=== PATIENT | male | born 1940 | race Caucasian/White ===

== ENCOUNTER 2016-12-09 14:51 | Emergency (ER) | payer MEDICARE, OTHER ==
[2016-12-09 15:03] VITALS: BP 144/91
--- NOTE | 2016-12-09 16:20 | UC ---
Neck Pain HPI - HPI Summary HPI Summary: complaint of neck pain 1 week ago after working on his lawnmower gradually has worsened since the incident started in right shoulder pain and radiates into neck hx of cervical spine surgery - removed fragments 1974 sitting in recliner with his head back makes it worse sitting upright is more comfortable denies any numbness tinging or numbness in right arm took some tylenol and biofreeze for pain with some relief - History of Current Complaint Chief Complaint: UCBackPain Stated Complaint: NECK PAIN Time Seen by Provider: 12/09/16 16:14 Hx Obtained From: Patient - Allergies/Home Medications Allergies/Adverse Reactions: Allergies Allergy/AdvReac Type Severity Reaction Status Date / Time No Known Allergies Allergy Verified 12/09/16 15:04 PMH/Surg Hx/FS Hx/Imm Hx Previously Healthy: Yes Endocrine History: Dyslipidemia Respiratory History: Asthma - Surgical History Surgical History: Yes Surgery Procedure, Year, and Place: TONSILLECTOMY A CHILD. 2002 ORIF RIGHT ANKLE, [facility] [place]. 2005 LEFT INGUINAL HERNIA REPAIR, [facility] [place]. October 2011 EXPLORATORY LAPAROTOMY WITH PERFORATED BOWEL REPAIR, [facility] [place]. 04/18 HERNIA REPAIR WITH MESH, [facility] [place]. 1974 CERVICAL DISCECTOMY, [place]. 2008 LEFT CATARACT EXTRACTION WITH IOL IMPLANT, [facility] [place] - Family History Known Family History: Positive: Hypertension Negative: Cardiac Disease, Diabetes - Social History Lives: With Family Alcohol Use: Rare Substance Use Type: None Smoking Status (MU): Former Smoker Length of Time of Smoking/Using Tobacco: 7 YRS Have You Smoked in the Last Year: No When Did the Patient Quit Smoking/Using Tobacco: 1964 - Immunization History Most Recent Influenza Vaccination: 2013 Most Recent Tetanus Shot: within last 10 years Most Recent Pneumonia Vaccination: 2012 Review Of Systems Constitutional: Positive: Negative Skin: Positive: Negative Eyes: Positive: Negative ENT: Positive: Negative Respiratory: Positive: Negative Cardiovascular: Positive: Negative Gastrointestinal: Positive: Negative Genitourinary: Positive: Negative Musculoskeletal: Positive: Other: - neck pain Neurological: Positive: Negative Psychological: Positive: Negative All Other Systems Reviewed And Are Negative: Yes Physical Exam Triage Information Reviewed: Yes Appearance: No Pain Distress, Well-Nourished Vital Signs: Initial Vital Signs Temp 97.7 F 12/09/16 14:58 Pulse 71 12/09/16 14:58 Resp 20 12/09/16 14:58 BP 144/91 12/09/16 14:58 Pulse Ox 99 12/09/16 14:58 Vital Signs Reviewed: Yes Eyes: Positive: Conjunctiva Clear ENT: Positive: Pharynx normal, TMs normal Neck: Positive: Supple, Other: - no cspine tenderness tenderness along right trapezius musculature Respiratory: Positive: Lungs clear, Normal breath sounds, No respiratory distress, No accessory muscle use Cardiovascular: Positive: RRR, No Murmur, Pulses Normal Abdomen Description: Positive: Nontender, Soft Bowel Sounds: Positive: Present Musculoskeletal Exam: Normal Neurological: Positive: Alert Psychological: Positive: Normal Response To Family, Age Appropriate Behavior Skin Exam: Normal Neck Pain Course/Dx - Differential Dx/Diagnosis Differential Dx/HQI/PQRI: Sprain, Strain Provider Diagnoses: neck pain Discharge - Discharge Plan Condition: Stable Disposition: HOME Prescriptions: Cyclobenzaprine HCl [Flexeril 5 mg (NF)] 5 mg PO BEDTIME #5 tab Patient Education Materials: Neck Pain (ED) Referrals: Iris Rebolledo NP [Primary Care Provider] - Additional Instructions: Start flexeril as directed. Do not drink alcohol or drive while taking flexeril. Please call physical therapy for further evaluation and treatment. Take acetaminophen for pain. Increase fluids and rest. Please review your discharge instructions. If your symptoms do not improve please call your primary care provider or return to urgent care.
== END 2016-12-09 16:35 | disposition home or self-care (01) ==
LOC: UCEAST 14:51
DX: M54.2 Cervicalgia (principal); Z98.890 Other specified postprocedural states; Z87.39 Personal history of other diseases of the musculoskeletal system and connective tissue
CPT/HCPCS: 99211; G0463

== ENCOUNTER 2017-07-20 10:41 | Day surgery (SDC) | payer MEDICARE, OTHER ==
[~2017-07-20 10:41] MED LIST: Buffered Lidocaine 0.9% SYRIN* 5 ML/SYR SYRINGE INTRADERM ONE; Famotidine IV* 10 MG/ML 2 ML (20 mg) IV ONE; Metoclopramide TAB* 10 MG PO ONE
[2017-07-20] MEDS ORDERED: Propofol* 10 MG/ML 20 ML BTL IV PUSH ONE (10:51)
[2017-07-20] MEDS ORDERED: Dexamethasone IV* 4 MG/ML 1 ML (4 MG) ONE (10:51)
[2017-07-20] MEDS ORDERED: fentaNYL* 50 MCG/ML 2 ML VIAL (100 MCG VIAL) ONE (10:51)
[2017-07-20] MEDS ORDERED: Midazolam* 1 MG/ML 10 ML VIAL (10 MG) ONE (10:51)
[2017-07-20] MEDS ORDERED: Ondansetron INJ* 2 MG/ML VIAL ONE (10:51)
[2017-07-20] MEDS ORDERED: Lidocaine 2% PF * 5 ML VIAL ONE (10:51)
[2017-07-20] MEDS ORDERED: KETAMINE HCL* 50 MG/ML 10 ML VIAL ONE (10:51)
[2017-07-20] MEDS ORDERED: Famotidine IV* 10 MG/ML 2 ML (20 mg) ONE (11:04)
[2017-07-20] MEDS ORDERED: Buffered Lidocaine 0.9% SYRIN* 5 ML/SYR SYRINGE ONE (11:05)
[2017-07-20] MEDS ORDERED: Metoclopramide TAB* 10 MG ONE (11:05)
[2017-07-20] MEDS ORDERED: Lidocaine 1% MPF wEPI 200,000* 30 ML SDV ONE (12:01)
[2017-07-20] MEDS ORDERED: Naloxone* 0.4 MG/ML 1 ML VIAL IV PRN (13:00)
[2017-07-20] MEDS ORDERED: Ondansetron INJ* 2 MG/ML VIAL IV PRN (13:00)
[2017-07-20] MEDS ORDERED: fentaNYL* 50 MCG/ML 2 ML VIAL (100 MCG VIAL) IV PRN (13:00)
[2017-07-20 14:43] VITALS: BP 132/78
== END 2017-07-20 14:57 | disposition home or self-care (01) ==
LOC: OR 10:41
PROVIDERS: ATTEND Plastic Surgery
DX: C44.311 Basal cell carcinoma of skin of nose (principal); G47.33 Obstructive sleep apnea (adult) (pediatric); Z85.828 Personal history of other malignant neoplasm of skin; M19.90 Unspecified osteoarthritis, unspecified site
CPT/HCPCS: 88305; 88331; 88332; A9270-GY; J1100; J2001; J2250; J2405; J2704; J3010

== ENCOUNTER 2017-09-09 09:30 | Inpatient (IN) | payer MEDICARE, OTHER ==
[~2017-09-09 09:30] MED LIST changes: -Famotidine IV* 10 MG/ML 2 ML (20 mg) IV ONE; -Metoclopramide TAB* 10 MG PO ONE
[2017-09-15] MEDS ORDERED: Buffered Lidocaine 0.9% SYRIN* 5 ML/SYR SYRINGE INTRADERM ONE (12:49)
[2017-09-16] MEDS ORDERED: Buffered Lidocaine 0.9% SYRIN* 5 ML/SYR SYRINGE ONE (08:37)
[2017-09-16] MEDS ORDERED: ceFAZolin 2 GM PREMIX (*) 2 GM/50 ML BAG IVPB ONE (08:37)
--- OUTSIDE RECORDS SUMMARY | 2017-09-16 08:42 | XMS REPORT ---
:1940 External Reference #:[id number] Author Organization [facility] Address [address] [address] Phone [phone] Care Team Providers Name Role Phone Josiah De La Torre MD Care Team Information Shell Maker Lockstitch Unavailable Berny Vargas MD Primary Care Physician Unavailable Payers Type Date Identification Numbers Payment Provider Subscriber Medicare Primary Policy Number: [id number] Medicare Alayna Hassan PayID: [id number] [address] [place] [address] Medigap Part B Policy Number: [id number] [employer] Insurance Alayna Hassan Group Number: [id number] [address] PayID: [id number] [place] [address] Problems Date Description Provider Status Onset: 03/23/2014 Obstructive sleep apnea syndrome Kendy Hsu MD Active Onset: 06/02/2016 Nasal congestion Kelly Barajas DNP, RN, Active SENIOR PASTOR-BC Onset: 12/11/2016 Mixed hyperlipidemia Sophy Rincon M.D.,FACKeyshawn Onset: 08/11/2017 Basal cell carcinoma of face Sophy Rincon M.D.,FACKeyshawn Note: removed Onset: 08/31/2017 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 Onset: 08/31/2017 Lumbosacral spondylosis without Cordelia Garrido MD Active myelopathy Onset: 08/31/2017 Sciatica Cordelia Garrido MD Active Family History Date Family Member(s) Problem(s) Comments General cancer Father Killed in accident when pt was 2 Mother Lived until her 90's Siblings 1 Social History Type Date Description Comments Marital Status Lives With Occupation retired Tech at [employer] Cigarette Use Has not smoked since 24 years old ETOH Use 12/13/2016 Occasionally consumes alcohol Smoking Patient is a former smoker Recreational Drug Use Denies Drug Use Exercise Type/Frequency Exercises regularly General Hx Text Allergies, Adverse Reactions, Alerts Date Description Reaction Status Severity Comments 03/23/2014 NKDA active Medications Medication Date Status Form Strength Qnty SIG Indications Ordering Provider Gabapentin 08/11/ Active Capsules 100mg 180cap 1 po qid Berny 2018 s for 4d, Andrei Vargas, then 2 po M.D.,FACP qid for 4d, then 3 qid for 4d,then 4 qid ongoing Montelukast 04/18/ Active Tablets 10mg 1 by Unknown Sodium 2014 mouth every day Eye Lubricant 04/18/ Active as needed Unknown 2014 Atorvastatin / Active Tablets 20mg 90tabs take 1 Unknown Calcium 0000 tablet daily Vitamin D / Active Capsules 400Unit 1 by Unknown (Cholecalciferol) 0000 mouth every day Vitamin E / Active Capsules 200Unit 1 by Unknown 0000 mouth every day Acetaminophen-Cod 12/11/ Hx Tablets 300-30mg 30tabs 1-2 tab Berny mclaughlin #3 2017 - by mouth Andrei Vargas, 05/24/ 3x a day M.D.,FACP 2017 as needed Metaxalone 12/11/ Hx Tablets 400mg 30tabs 1 by Berny 2017 - mouth Andrei Vargas, 08/11/ 3x/day if M.D.,FACP 2017 needed Cyclobenzaprine 12/09/ Hx Tablets 5mg 5tabs take one Other HCL 2017 - tablet by Ordering 12/11/ mouth Provider 2017 nightly Eye Drops 04/18/ Hx as needed Unknown 2014 - 2017 Aspirin Ec / Hx Tablets DR 81mg 90tabs 1 by Unknown 0000 - mouth 07/23/ every day 2016 Advil / Hx Capsules 200mg as needed Unknown 0000 - 2017 Immunizations CPT Code Status Date Vaccine Lot # [id number] Given 05/24/2017 Pneumococcal Conjugate Vaccine 13 Valent For [id number] Intramuscular Use [id number] Given 03/02/2017 Influenza Virus Vaccine, Quadrivalent, Split, Preservative Free Vital Signs Date Vital Result Comment 08/31/2017 Height 66 inches 5'6" Weight 197.00 lb BP Systolic Sitting 122 mmHg BP Diastolic Sitting 80 mmHg Pain Level 2 BMI (Body Mass Index) 31.8 kg/m2 08/11/2017 Weight 195.00 lb Heart Rate 78 /min BP Systolic Sitting 124 mmHg BP Diastolic Sitting 82 mmHg Body Temperature 96.8 F O2 % BldC Oximetry 98 % 05/24/2017 Weight 196.12 lb Heart Rate 81 /min BP Systolic Sitting 128 mmHg BP Diastolic Sitting 82 mmHg Body Temperature 97.7 F O2 % BldC Oximetry 91 % 12/11/2016 Weight 201.50 lb Heart Rate 73 /min BP Systolic Sitting 130 mmHg BP Diastolic Sitting 84 mmHg Body Temperature 97.7 F O2 % BldC Oximetry 96 % 06/02/2016 Height 65 inches 5'5" Weight 200.00 lb Heart Rate 95 /min BP Systolic 108 mmHg BP Diastolic 76 mmHg Respiratory Rate 14 /min O2 % BldC Oximetry 92 % BMI (Body Mass Index) 33.3 kg/m2 07/24/2015 Height 65 inches 5'5" Weight 200.00 lb Heart Rate 89 /min BP Systolic 126 mmHg BP Diastolic 79 mmHg BMI (Body Mass Index) 33.3 kg/m2 04/19/2015 Height 65 inches 5'5" Weight 202.12 lb Heart Rate 88 /min BP Systolic Sitting 126 mmHg BP Diastolic Sitting 68 mmHg Respiratory Rate 18 /min O2 % BldC Oximetry 97 % BMI (Body Mass Index) 33.6 kg/m2 Neck Circumference in inches 17.5 03/23/2014 Height 65 inches 5'5" Weight 198.00 lb Heart Rate 94 /min BP Systolic Sitting 120 mmHg BP Diastolic Sitting 72 mmHg Respiratory Rate 20 /min O2 % BldC Oximetry 94 % BMI (Body Mass Index) 32.9 kg/m2 Results Test Date Test Result H/L Range Note Laboratory test 2017 Surgical Pathology SEE RESULT BELOW 1 finding Comp Metabolic Panel 05/24/2017 Sodium 141 mmol/L 133-145 Potassium 4.3 mmol/L 3.5-5.0 Chloride 107 mmol/L 101-111 Co2 Carbon Dioxide 28 mmol/L 22-32 Anion Gap 6 mmol/L 2-11 Glucose 96 mg/dL 70-100 Blood Urea Nitrogen 15 mg/dL 6-24 Creatinine 1.20 mg/dL High 0.67-1.17 BUN/Creatinine Ratio 12.5 8-20 Calcium 8.9 mg/dL 8.6-10.3 Total Protein 6.5 g/dL 6.4-8.9 Albumin 4.0 g/dL 3.2-5.2 Globulin 2.5 g/dL 2-4 Albumin/Globulin Ratio 1.6 1-3 Total Bilirubin 1.20 mg/dL High 0.2-1.0 Alkaline Phosphatase 60 U/L 34-104 Alt 15 U/L 7-52 Ast 16 U/L 13-39 Egfr Non- 58.7 >60 Egfr 75.5 >60 2 Lipid Profile (Trig/Chol/HDL) 05/24/2017 Triglycerides 72 mg/dL 3 Cholesterol 137 mg/dL 4 HDL Cholesterol 45.2 mg/dL 5 LDL Cholesterol 77 mg/dL 6 Laboratory test finding 05/24/2017 PSA Screening 0.254 ng/mL 0-4.000 7 Arthritis Panel 07/24/2015 Uric Acid 6.3 mg/dL 4.4-7.6 Erythrocyte Sed Rate 0 mm/Hr 0-40 Yoly (Anti-Nuclear AB) Screen Negative Negative Rheumatoid Factor <15 IU/mL <15 8 1 SEE RESULT BELOW Name: ALAYNA HASSAN : [address]: Alen Torres MD Acct: [id number] Unit: [id number] AGE: 77 Location: OR Re07/20/17 SEX: M Status: AKOSUA REDDY SPEC: [id number] TIFFANIE: 07/20/17- SUBM DR: Alen Torres MD REQ: [id number] RECD: 07/20/17-1257 STATUS: DARRIUS TANG DR: Berny Wilder MD _ ORDERED: FS 1ST PER SPEC, FS ADD PER SPEC, LEVEL 4 THIS IS A CORRECTED REPORT 08/04/17-1620 Corrected Report FINAL DIAGNOSIS Skin, right nasal ala, excision: -- Basal cell carcinoma, superficial and nodular type. See comment. -- Deep, tip, lateral margins of resection are clear. Comment: The nodular component is seen only in frozen section slides. Focal superficial basal cell carcinoma is seen on permanents. This corrected report is generated to fix the specimen line in diagnosis. The remainder of the diagnosis remains unchanged. PATHOLOGY SURGICAL CONSULT Frozen section (FS)/Touch Prep (TP)/Gross Consult (GC) FS) Skin, right nasal ala, excision: a. Basal cell carcinoma, superficial and nodular. (EP) b. All margins clear. (EP) Findings discussed with Dr Torres on 07/20/17 at 1313. PRE-OPERATIVE DIAGNOSIS Basal cell carcinoma right nasal ala; suture buitrago 12 o?clock superior margin CONTINUED ON NEXT PAGE DEPARTMENT OF PATHOLOGY, [address] [place] [address] Naman Jones M.D. Director [facility] # [id number] RUN DATE: 08/04/17 [facility] LAB LIVE PAGE 2 Patient: ALAYNA HASSAN [id number] (Continued) GROSS DESCRIPTION (Continued) GROSS DESCRIPTION The specimen is received fresh labeled, Excision Basal Cell Carcinoma Right Nasal Ala, Suture Buitrago 12:00 Superior Margin, and consists of a 1.1 x 1.0 cm peres-pink ovoid portion of skin excised to a depth of 0.3 cm. There is a suture attached to one long axis which designates the 12:00 superior margin. The specimen is inked as follows: 9: 00 half black, 3:00 half blue and 12:00 end green, serially sectioned from 12:00 to 6:00 and entirely submitted for frozen section microscopy. The frozen section residue is submitted in cassettes FSA and FSB to include ends in cassette FSA. Signed (signature on file) Naman Jones MD [id number] END OF REPORT DEPARTMENT OF PATHOLOGY, [address] [place] [address] Naman Jones M.D. Director [facility] # [id number] 2 Because ethnic data is not always readily available, this report includes an eGFR for both -Americans and non- Americans. The National Kidney Disease Education Program (NKDEP) does not endorse the use of the MDRD equation for patients that are not between the ages of 18 and 70, are , have extremes of body size, muscle mass, or nutritional status, or are non- or non-. According to the National Kidney Foundation, irrespective of diagnosis, the stage of the disease is based on the level of kidney function: Stage Description GFR(mL/min/1.73 m(2)) 1 Kidney damage with normal or decreased GFR 90 2 Kidney damage with mild decrease in GFR 60-89 3 Moderate decrease in GFR 30-59 4 Severe decrease in GFR 15-29 5 Kidney failure <15 (or dialysis) 3 Desirable: <150 Borderline High: 150-199 High: 200-499 Very High: >500 4 Desirable: <200 Borderline High: 200-239 High: >239 5 Low: <40 Desirable: 40-60 High: >60 6 Desirable: <100 Near Optimal: 100-129 Borderline High: 130-159 High: 160-189 Very High: >189 7 Serum levels of PSA measured using the [employer] DXI Hybritech immunoassay should not be interpreted as absolute evidence of the presence or absence of disease. The PSA value should be used in conjunction with other pertinent clinical diagnostic procedures. A PSA value in the range of 0.1 to 0.6 ng/ml is indeterminate if being used as an indicator of recurrent or residual disease. The values obtained with different assay methods or kits cannot be used interchangeably. 8 Test Performed by: [place] [id number] Telegrapher Agent: Alayna Kaiser II, M.D., Ph.D. Procedures Date CPT Code Description Status 06/18/2014 Colonoscopy Completed 04/04/2012 51630 EKG, Interpretation Only Completed 01/24/2010 Colonoscopy Completed Encounters Type Date Location Provider CPT E/M Dx Office Visit 08/11/2017 1:40p [facility] Internal Berny Vargas, 62580 M54.42 Medicine - [place] Schrader,FACP Office Visit 05/24/2017 8:50a [facility] [place] [address] E78.5 Medicine - [place] Gust[place] Z23 J30.9 Office Visit 12/11/2016 10:40a [facility] Internal Medicine Berny Vargas, 60656 M54.2 - [place] Schrader,FACP Office Visit 06/02/2016 8:15a Pul[facility]ology [facility] Sleep Kelly Barajas, [address] [facility] JUSTINO JAVED, [facility] R09.81 Office Visit 07/24/2015 1:30p [facility], 44464 M66.242 C.MKendallAKendall Schrader Office Visit 04/19/2015 9:30a Pul[facility]ology [facility] Sleep Kelly Barajas, [address] [facility] JUSTINO JAVED, [facility] Office Visit 06/21/2014 10:10a [facility] Rene Felix, [address] 578.9 Assoc, Hospitalists M.DKendall 327.23 272.4 278.00 Office Visit 06/20/2014 10:09a [facility], Rene Felix [address]303 578.9 Hospitalists MKendallDKendall 327.23 278.00 272.4 Office Visit 06/18/2014 10:08a [facility], Rachel Fried, N.P. 21438 578.9 Hospitalists 327.23 278.00 Office Visit 03/23/2014 11:45a [facility] [address] [facility] Plan of Care Future Appointment(s):11/22/2017 9:50 am - Iris Rebolledo NP at [facility] Internal Medicine - [place] [address]08/31/2017 - Cordelia Garrido, MDM54.42 Lumbago with sciatica, left sideM47.26 Other spondylosis with radiculopathy, lumbar regionFollow up:RV one week post opM51.26 Other intervertebral disc displacement , lumbar region
[2017-09-16] MEDS ORDERED: Lidocaine 1% MPF wEPI 200,000* 30 ML SDV ONE ×2 (11:25→11:32)
[2017-09-16] MEDS ORDERED: Thrombin 5,000 UNITS* 1 APPLIC KIT - topical use - TOPICAL ONE ×2 (11:26→11:33)
[2017-09-16] MEDS ORDERED: Bacitracin OINTMENT* 0.5% 0.5 oz TUBE ONE (11:26)
[2017-09-16] MEDS ORDERED: Bacitracin IV* 50,000 UNITS INJ ONE (11:33)
[2017-09-16] MEDS ORDERED: Propofol* 10 MG/ML 20 ML BTL IV PUSH ONE (11:44)
[2017-09-16] MEDS ORDERED: Dexamethasone IV* 4 MG/ML 1 ML (4 MG) ONE (11:44)
[2017-09-16] MEDS ORDERED: Atracurium* 10 MG/ML 10 ML VIAL ONE (11:44)
[2017-09-16] MEDS ORDERED: fentaNYL* 50 MCG/ML 2 ML VIAL (100 MCG VIAL) ONE ×2 (11:44→14:51)
[2017-09-16] MEDS ORDERED: Midazolam* 1 MG/ML 5 ML VIAL (5 MG) ONE (11:45)
[2017-09-16] MEDS ORDERED: Gelfoam Sponge SIZE 100* SPONGE ONE (12:28)
[2017-09-16] MEDS ORDERED: Ondansetron INJ* 2 MG/ML VIAL IV PRN ×2 (14:02→14:13)
[2017-09-16] MEDS ORDERED: DiMENhydriNATE IV* 50 MG/ML VIAL IV PUSH PRN (14:02)
[2017-09-16] MEDS ORDERED: HYDROcodone/ACETAMIN 5-325 MG* 1 TAB PO PRN (14:02)
[2017-09-16] MEDS ORDERED: Naloxone* 0.4 MG/ML 1 ML VIAL IV PRN (14:02)
[2017-09-16] MEDS ORDERED: oxyCODONE TAB* 5 MG TAB PO PRN (14:02)
[2017-09-16] MEDS ORDERED: Ondansetron INJ* 2 MG/ML VIAL ONE (14:08)
[2017-09-16] MEDS ORDERED: Glycopyrrolate IV* 0.2 MG/ML 1 ML VIAL ONE (14:12)
[2017-09-16] MEDS ORDERED: Neostigmine Methylsulfate* 1 MG/ML 10 ML VIAL (1 mg/ml) ONE (14:12)
[2017-09-16] MEDS ORDERED: Acetaminophen TAB* 325 MG PO PRN (14:13)
[2017-09-16] MEDS ORDERED: Magnesium Hydroxide LIQ* 30 ML UDC PO PRN (14:13)
[2017-09-16] MEDS: fentaNYL* 50 MCG/ML 2 ML VIAL (100 MCG VIAL) IV PRN ×4 (14:52→15:08)
[2017-09-16] MEDS ORDERED: HYDROmorphone INJ* 2 MG/ML CARPUJECT SYRINGE ONE (15:07)
[2017-09-16] MEDS: HYDROmorphone INJ* 1 MG/ML CARPUJECT SYRINGE IV PRN ×2 (15:12→15:31)
[2017-09-16] MEDS ORDERED: oxyCODONE TAB* 5 MG TAB ONE (15:16)
--- NOTE | 2017-09-16 15:23 | RAD ---
INDICATION: Decompressive lumbar laminectomy COMPARISONS: MRI dated August 17, 2017 TECHNIQUE: Fluoroscopy was provided for a surgical procedure. Total fluoroscopy time is: 14.1 seconds FINDINGS: Spot images demonstrate metallic probes at L5-S1, counting from L5 as the last lumbar type vertebral body. IMPRESSION: FLUOROSCOPY WAS PROVIDED FOR A SURGICAL PROCEDURE CPT II Codes: G9500
[2017-09-16] MEDS ORDERED: Atorvastatin* 20 MG TAB PO SCH (18:00)
--- NOTE | 2017-09-16 22:08 | OP ---
DATE OF OPERATION: 09/16/17 - ROOM #342 DATE OF : 38 SURGEON: Cordelia Garrido MD PRESS BREAKER: ARON Don. The case was done with the assistance of a surgical PA because of the complexity of the case. ANESTHESIA: General. PRE-OP DIAGNOSES: Degenerative disk disease, lumbar stenosis, spondylosis, and herniated nucleus pulposus. POST-OP DIAGNOSES: Degenerative disk disease, lumbar stenosis, spondylosis, and herniated nucleus pulposus. OPERATIVE PROCEDURE: The patient underwent minimally invasive L5 decompressive laminectomy and left L5-S1 diskectomy with extensive foraminotomy left S1. ESTIMATED BLOOD LOSS: 30 cc. COMPLICATIONS: None. SUMMARY: The patient is a very pleasant 77-year-old gentleman with complaints of mild back pain and severe left lower extremity pain. MRI findings were consistent with multilevel degenerative disk disease and large left L5-S1 herniated nucleus pulposus with stenosis at that same level. After failing conservative treatment modalities, the patient was offered the option of surgical intervention in the form of an L5-S1 decompressive laminectomy and right L5-S1 diskectomy and foraminotomies. We discussed with the patient the option of extending the decompression to L4-5 if needed. We agreed with the patient to concentrate on the L5-S1 level since his modality was predominantly on the left lower extremity and had minimal or no symptoms in the right lower extremity. After explaining expectations, limitations, possible complications of the procedure to the patient and his daughter with complications included but not limited to bleeding, infection, risk of injury to adjacent structures, coma, paralysis, , need for additional procedures, anesthesia risk, stroke , blindness, cancer, instability, spinal fluid leak, the patient and his daughter were agreeable to proceeding with surgery and informed consent was obtained. The patient understood that his condition may not improve, and, in fact, may get worse after surgery, and that he may need to have additional procedure in the future. He also understood that the operative plan may be modified according to intraoperative findings and conditions. DESCRIPTION OF PROCEDURE: The patient was brought to the operating room and was placed under general anesthesia by the anesthesia team. He was carefully positioned prone on the Francisco frame on the Jerel table and all bony prominences were meticulously padded. His skin was prepped and draped in the standard fashion and after appropriate surgical pause and patient identification , the operative level was identified with intraoperative fluoroscopic imaging. A small left paramedian incision was marked on the skin and after the skin was infiltrated with local anesthetic, a #10 surgical blade was used to incise the skin. The incision was carried down to the dorsal fascia, and over a series of dilators, the [employer] tubular retractor was introduced into the field over the L5- S1 disk space. Intraoperative microscope was brought into the field and a small amount of paraspinal musculature was elevated with the use of Bovie cautery and the base of the spinous process and the lamina of L5 as well as the L5-S1 facet were identified. A high-speed drill as well as Kerrison punches were used to fashion a complete decompressive laminectomy of L5, decompressing the L5-S1 disk level as well as the L4-5. Of note, significant stenosis was encountered with thickened ligamentum flavum as expected from the preoperative imaging. After performing a small medial facetectomy, the left S1 nerve root was identified and extensive foraminotomy was performed. The thecal sac was then retracted gently medially with nerve root retractor and a large disk fragment protruding under the posterior ligament was identified as expected on preoperative MRI. The posterior ligament was incised with a #15 surgical blade as well as the annulus fibrosus and fragmentectomy and diskectomy was performed with the use of pituitary rongeurs and curettes. Intraoperative fluoroscopic imaging confirmed appropriate surgical level and after copious irrigation and confirmation of meticulous hemostasis, the thecal sac as well as the nerve root was found to be free of any pressure phenomenon. The tubular retractor was then gently removed and after confirming meticulous hemostasis and copious irrigation as well as meticulous inspection of the wound, the wound was closed by layers with 0 interrupted Vicryl suture to approximate the dorsal fascia while the subcutaneous tissue was approximated with 2-0 interrupted Vicryl sutures. The skin was then covered with Dermabond. At the end of the procedure , all counts were reported to be correct. The patient remained hemodynamically stable throughout the case. At the end of the procedure, the patient was turned supine, was extubated and was transferred to Recovery in excellent condition. The case was done with the assistance of ARON because of the complexity of the case. [id number]/[facility] #: [id number] YESSENIA
[2017-09-17 08:09] VITALS: BP 116/69
[2017-09-17] MEDS: HYDROcodone/ACETAMIN 5-325 MG* 1 TAB PO PRN ×2 (08:14→10:48)
--- NOTE | 2017-09-17 10:24 | PN ---
Progress Note - Progress Note Date of Service: 09/17/17 SOAP: Subjective: [] No events ON. Ambulates. Tolerates PO well. LLE preop pain resolved. Mild soreness in buttocks area after prolonged sitting on bed this am. Voids. Perineal sensation intact. Wants to go home. Objective: []VSS Afebrile Wound s,c,d AAOx3 ALFRED, CN II-XII grossly intact. Motor 5/5 all extremities Sensory grossly intact to light touch. Assessment: [] 77 yom POD#1 MIS L5 decompressive laminectomy, Lt L5-S1 discectomy Plan: []Monitor VS, Neurochecks Encourage ambulation. DC home when cleared by PT. Full instructions were given. Gwen Garrido MD
--- NOTE | 2017-09-19 02:45 | DS ---
DISCHARGE SUMMARY: DATE OF ADMISSION: 09/16/17 DATE OF DISCHARGE: 09/17/17 PROCEDURE: Patient underwent minimally invasive L5 decompressive laminectomy with left L5-S1 diskectomy and extended foraminotomy. SUMMARY: The patient is a very pleasant 77-year-old gentleman with complaints of back pain and left lower extremity pain. MRI findings were consistent with multilevel degenerative disk disease and left L5-S1 herniated nucleus pulposus with canal stenosis at the same level. After failing conservative treatment, the patient was offered option of surgical intervention. After explaining the risks and benefits of the procedure, the patient was agreeable to proceed with the surgery. Informed consent was obtained. Patient underwent the above procedure. He tolerated the procedure well, was able to extubate and was transferred to the recovery room in excellent condition. He was transferred to surgical floor and he continued to improve. On postoperative day 1, preoperative left lower extremity pain completely resolved. He was able to ambulate and tolerating p.o. well and had good pain control with p.o. medication. He was able to void and was neurovascularly intact. The patient was felt to be ready to be discharged home. DISPOSITION: Home. The patient was discharged home with pain medication and full instructions. [id number]/[facility] #: [id number] [facility]ENTERConcepcion
== END 2017-09-17 12:10 | disposition home or self-care (01) | DRG 520 ==
LOC: AA 09-16 08:36 → SSU 09-16 16:53
PROVIDERS: ADMIT Neurological Surgery; ATTEND Neurological Surgery
PROC: 01NB0ZZ Release Lumbar Nerve, Open Approach (ICD-10-PCS; 2017-09-16)
PROC: 0SB40ZZ Excision of Lumbosacral Disc, Open Approach (ICD-10-PCS; 2017-09-16)
PROC: 01NR0ZZ Release Sacral Nerve, Open Approach (ICD-10-PCS; 2017-09-16)
PROC: 0SB20ZZ Excision of Lumbar Vertebral Disc, Open Approach (ICD-10-PCS; principal; 2017-09-16 10:00)
DX: M51.17 Intervertebral disc disorders with radiculopathy, lumbosacral region (principal); M48.07 Spinal stenosis, lumbosacral region; E78.00 Pure hypercholesterolemia, unspecified; M48.061 Spinal stenosis, lumbar region without neurogenic claudication; M43.16 Spondylolisthesis, lumbar region; M51.16 Intervertebral disc disorders with radiculopathy, lumbar region; M47.816 Spondylosis without myelopathy or radiculopathy, lumbar region; M47.817 Spondylosis without myelopathy or radiculopathy, lumbosacral region; E78.2 Mixed hyperlipidemia; G47.33 Obstructive sleep apnea (adult) (pediatric); J38.01 Paralysis of vocal cords and larynx, unilateral; Z98.42 Cataract extraction status, left eye; Z98.41 Cataract extraction status, right eye; Z80.9 Family history of malignant neoplasm, unspecified; Z87.891 Personal history of nicotine dependence; Z72.89 Other problems related to lifestyle; Z85.828 Personal history of other malignant neoplasm of skin
CPT/HCPCS: 76001; A9270-GY; G8978-GP-CH; G8979-GP-CH; G8980-GP-CH; J0690; J1100; J1170; J2001; J2250; J2405; J2704; J2710; J3010

== ENCOUNTER 2018-01-14 19:34 | Emergency (ER) | payer MEDICARE, OTHER ==
--- OUTSIDE RECORDS SUMMARY | 2018-01-14 19:39 | XMS REPORT ---
:1940 External Reference #:[id number] Author Organization [facility] Address [address] [place] [address] [place] [address] Phone [phone] Care Team Providers Name Role Phone Berny Vargas MD Primary Care Physician Unavailable Payers Type Date Identification Numbers Payment Provider Subscriber Medicare Primary Policy Number: [id number] Medicare Alayna Hassan PayID: [id number] [address] [place] [address] Medigap Part B Policy Number: [id number] [employer] Insurance Alayna Hassan Group Number: [id number] [address] PayID: [id number] [place] [address] Problems Date Description Provider Status Onset: 03/23/2014 Obstructive sleep apnea syndrome Kendy Hsu MD Active Onset: 06/02/2016 Nasal congestion Kelly Barajas DNP, RN, Active [employer]ATION [employer]ER[employer] Onset: 12/11/2016 Mixed hyperlipidemia Sophy Rincon M.D.FACKeyshawn Onset: 08/11/2017 Basal cell carcinoma of face Sophy Rincon M.D.FACKeyshawn Note: removed Onset: 08/31/2017 Sciatica Cordelia Garrido MD Active Onset: 08/31/2017 Lumbosacral spondylosis without Cordelia Garrido MD Active myelopathy Onset: 08/31/2017 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 Onset: 11/24/2017 Ex-smoker Berny Vargas M.D.,FACP Active Note: quit age 24 Onset: 09/22/2017 Convalescence after surgery Cordelia Garrido MD Inactive Inactive: 11/24/2017 Family History Date Family Member(s) Problem(s) Comments General cancer Father Killed in accident when pt was 2 Mother Lived until her 90's Mother Chronic Obstructive Pulmonary Disease (COPD) Mother Diverticulitis Siblings 1 Social History Type Date Description Comments Marital Status Lives With Occupation retired [employer] at [place] Cigarette Use Has not smoked since 24 years old ETOH Use 12/13/2016 Occasionally consumes none in past month alcohol 09/06/17 Smoking Patient is a former smoker Recreational Drug Use Denies Drug Use Exercise Type/Frequency Exercises regularly none last couple months General Hx Text Allergies, Adverse Reactions, Alerts Date Description Reaction Status Severity Comments 03/23/2014 NKDA active Medications Medication Date Status Form Strength Qnty SIG Indications Ordering Provider Mometasone 11/24 Active Suspension 50mcg/Act 17gm 1 spray Berny Lopez nasl lars Beltran M.D.,FACP every day Montelukast 10/07 Active Tablets 10mg 90tab 1 [address] [employer] [place] Sodium s mouth Pachikara, every day M.D. Ibuprofen 200 09/18 Active Tablets 200mg 24tab 400 mg po ios s q 6 h prn Hema osuna. MD Hold if GI symptoms develop Eye Lubricant 04/18 Active as needed Atorvastatin Active Tablets 20mg 90tab take 1 Enrique Calcium / s tablet Pachikara, daily M.D. Hydrocodone-Aceta 09/22 Hx Tablets 5-325mg 30tab 1 tab by Cordelia minophen s mouth Dimopoulos - every 6-8 MD 11/24 h needed pain Cyclobenzaprine 09/18 Hx Tablets 10mg 30tab 1 tab by Cordelia HCL s mouth Dimopoisrael - MD oilvia 09/22 times a day as needed for pain Gabapentin 08/11 Hx Capsules 100mg 180ca 2 tabs Iris ps twice a [place], - day SCENE PAINTER 09/22 Acetaminophen-Cod 12/11 Hx Tablets 300-30mg 30tab 1-2 tab Berny mclaughlin # s by mouth Andrei Vargas, - 3x a day M.D.,FACP 05/24 as needed /2016 Metaxalone 12/11 Hx Tablets 400mg 30tab 1 by Berny /2016 s mouth Andrei Vargas, - 3x/day if M.D.,FACP 08/11 needed Cyclobenzaprine 12/09 Hx Tablets 5mg 5tabs take one Other tablet by Ordering - mouth Provider 12/11 nightly /2016 Montelukast 04/18 Hx Tablets 10mg 90tab 1 by Iris Uriarte /2014 s mouth Rebolledo, - every day SCENE PAINTER 10/07 Eye Drops 04/18 Hx as needed - 08/11 Aspirin Ec [address] 81mg 90tab 1 by Unknown /0000 s mouth - every day 07/23 Vitamin D 00/00 Hx Capsules 400Unit 1 by Unknown (Cholecalciferol) /0000 mouth - every day 09/06 Vitamin E 00 Hx Capsules 200Unit 1 by Unknown /0000 mouth - every day 09/06 Advil 0000 Hx Capsules 200mg as needed Unknown /0000 - 08/11 Hydrocodone-Aceta 00 Hx Tablets 5-325mg Take 1 To Unknown minophen /0000 2 Tablets - By Mouth 11/24 Every Hours as Needed For Marked Pain Immunizations CPT Code Status Date Vaccine Lot # [id number] Given 05/24/2017 Pneumococcal Conjugate Vaccine 13 Valent For [id number] Intramuscular Use 05009 Given 03/02/2017 Influenza Virus Vaccine, Quadrivalent, Split, Preservative Free Vital Signs Date Vital Result Comment 12/21/2017 Height 66 inches 5'6" Weight 196.00 lb BP Systolic Sitting 112 mmHg BP Diastolic Sitting 80 mmHg Pain Level 4 BMI (Body Mass Index) 31.6 kg/m2 11/24/2017 Height 66 inches 5'6" Weight 196.00 lb Heart Rate 76 /min BP Systolic Sitting 128 mmHg BP Diastolic Sitting 80 mmHg Body Temperature 98.2 F O2 % BldC Oximetry 90 % BMI (Body Mass Index) 31.6 kg/m2 10/19/2017 Height 66 inches 5'6" Weight 198.00 lb BP Systolic Sitting 138 mmHg BP Diastolic Sitting 80 mmHg Pain Level 1 BMI (Body Mass Index) 32.0 kg/m2 09/22/2017 Height 66 inches 5'6" Weight 198.00 lb BP Systolic Sitting 140 mmHg BP Diastolic Sitting 80 mmHg Body Temperature 97.6 F Pain Level 2 BMI (Body Mass Index) 32.0 kg/m2 09/06/2017 Height 66 inches 5'6" Weight 198.00 lb Heart Rate 94 /min BP Systolic 118 mmHg BP Diastolic 70 mmHg Body Temperature 97.6 F O2 % BldC Oximetry 93 % BMI (Body Mass Index) 32.0 kg/m2 08/31/2017 Height 66 inches 5'6" Weight 197.00 [...] Test Date Test Result H/L Range Note Urinalysis Profile 09/03/2017 Urine Color Yellow Urine Appearance Clear Urine Specific Mason 1.019 1.010-1.030 Urine pH 5.0 5-9 Urine Urobilinogen Negative Negative Urine Ketones Negative Negative Urine Protein Negative Negative Urine Leukocytes Negative Negative Urine Blood Negative Negative Urine Nitrite Negative Negative Urine Bilirubin Negative Negative Urine Glucose Negative Negative Basic Metabolic Panel 09/03/2017 Sodium 141 mmol/L 139-145 Potassium 4.2 mmol/L 3.5-5.0 Chloride 107 mmol/L 101-111 Co2 Carbon Dioxide 27 mmol/L 22-32 Anion Gap 7 mmol/L 2-11 Glucose 66 mg/dL Low 70-100 Blood Urea Nitrogen 22 mg/dL 6-24 Creatinine 1.25 mg/dL High 0.67-1.17 BUN/Creatinine Ratio 17.6 8-20 Calcium 9.1 mg/dL 8.6-10.3 Egfr Non- 55.9 >60 Egfr 71.8 >60 1 Inr/Protime 09/03/2017 Inr 0.97 0.77-1.02 Laboratory test finding 09/03/2017 Partial Thrombo Time 35.2 seconds 26.0 -36.3 PTT CBC Auto Diff 09/03/2017 White Blood Count 8.2 10^3/uL 3.5-10.8 Red Blood Count 4.90 10^6/uL 4.0-5.4 Hemoglobin 16.0 g/dL 14.0-18.0 Hematocrit 47 % 42-52 Mean Corpuscular Volume 96 fL High 80-94 Mean Corpuscular Hemoglobin 33 pg High 27-31 Mean Corpuscular HGB Conc 34 g/dL 31-36 Red Cell Distribution Width 14 % 10.5-15 Platelet Count 186 10^3/uL 150-450 Mean Platelet Volume 8.3 um3 7.4-10.4 Abs Neutrophils 5.2 10^3/uL 1.5-7.7 Abs Lymphocytes 1.8 10^3/uL 1.0-4.8 Abs Monocytes 0.9 10^3/uL High 0-0.8 Abs Eosinophils 0.3 10^3/uL 0-0.6 Abs Basophils 0 10^3/uL 0-0.2 Abs Nucleated RBC 0 10^3/uL Granulocyte % 63.1 % 38-83 Lymphocyte % 21.4 % Low 25-47 Monocyte % 11.0 % High 0-7 Eosinophil % 4.0 % 0-6 Basophil % 0.5 % 0-2 Nucleated Red Blood Cells % 0 Type & Screen 09/03/2017 Patient Blood Type A Positive Antibody Screen NEGATIVE Laboratory test finding 2017 Surgical Pathology SEE RESULT BELOW 2 Laboratory test finding 05/24/2017 PSA Screening 0.254 ng/mL 0-4.000 3 Lipid Profile 05/24/2017 Triglycerides 72 mg/dL 4 (Trig/Chol/HDL) Cholesterol 137 mg/dL 5 HDL Cholesterol 45.2 mg/dL 6 LDL Cholesterol 77 mg/dL 7 Comp Metabolic Panel 05/24/2017 Sodium 141 mmol/L [...] Egfr Non- 58.7 >60 Egfr 75.5 >60 8 Arthritis Panel 07/24/2015 Uric Acid 6.3 mg/dL 4.4-7.6 Erythrocyte Sed Rate 0 mm/Hr 0-40 Yoly (Anti-Nuclear AB) Screen Negative Negative Rheumatoid Factor <15 IU/mL <15 9 1 Because ethnic data is not always readily [...] 15-29 5 Kidney failure <15 (or dialysis) 2 SEE RESULT BELOW Name: ALAYNA HASSAN : [address]: Alen Torres MD Acct: [id number] Unit: [id number] AGE: 77 Location: OR Re07/20/17 SEX: M [place] [facility] [place]: [id number] TIFFANIE: 07/20/17- [facility] DR: Alen Torres MD REQ: [id number] RECD: 07/20/17-1258 STATUS: DARRIUS TANG DR: Berny Wilder MD _ ORDERED: FS 1ST PER SPEC, FS ADD PER SPEC, LEVEL 4 THIS IS A CORRECTED REPORT 08/04/17-1621 Corrected Report FINAL DIAGNOSIS Skin, right nasal [...] CONTINUED ON NEXT PAGE DEPARTMENT OF PATHOLOGY, [address] [place] [address] Naman Jones M.D. Director [facility] # [id number] RUN DATE: 08/04/17 [facility] LAB LIVE PAGE 2 Patient: ALAYNA HASSAN [id number] (Continued) GROSS DESCRIPTION (Continued) GROSS DESCRIPTION The [...] 1628 END OF REPORT DEPARTMENT OF PATHOLOGY, [address] [place] [address] Naman Jones M.D. Director [facility] # [id number] 3 Serum levels of PSA measured using the Dori Nisswa DXI Hybritech immunoassay should not be interpreted [...] methods or kits cannot be used interchangeably. 4 Desirable: <150 Borderline High: 150-199 High: 200-499 Very High: >500 5 Desirable: <200 Borderline High: 200-239 High: >239 6 Low: <40 Desirable: 40-60 High: >60 7 Desirable: <100 Near Optimal: 100-129 Borderline High: 130-159 High: 160-189 Very High: >189 8 Because ethnic data is not always readily [...] 15-29 5 Kidney failure <15 (or dialysis) 9 Test Performed by: [place] [address] [employer]: Alayna Kaiser II, M.D., Ph.D. Procedures Date CPT Code Description Status 09/16/2017 30758 Use Of Operating Microscope Completed 09/16/2017 25213 Use Of Operating Microscope Completed 09/16/2017 58722 Mo/Facet/Foraminotomy;Vertebral Segment; Lumbar Completed 09/16/2017 15463 Mo/Facet/Foraminotomy;Vertebral Segment; Lumbar Completed 09/03/2017 93580 EKG, Interpretation Only Completed 06/18/2014 Colonoscopy Completed 04/04/2012 53018 EKG, Interpretation Only Completed 01/24/2010 Colonoscopy Completed Encounters Type Date Location Provider CPT E/M Dx Office Visit 11/24/2017 2:40p [facility] Berny Vargas, [address] R05 - [place] Gustabo Schrader,FACP G47.33 Office Visit 09/06/2017 9:20a [facility] [place] [address] Z01.818 Medicine - [address] M54.42 Office Visit 08/31/2017 2:00p [facility] [place] [address]805 M54.42 Of Nicole Garrido MD M47.26 M48.061 M48.07 M51.27 Office Visit 08/11/2017 1:40p [facility] Berny Vargas, 89620 M54.42 Medicine - [place] Gustabo Schrader,FACP Office Visit 05/24/2017 8:50a [facility] [place] [address] E78.5 Medicine - [address] Z23 J30.9 Office Visit 12/11/2016 10:40a [facility] Berny Vargas, 22187 M54.2 - [place] Gustabo Schrader,FACP Office Visit 06/02/2016 8:15a [facility] Kelly Barajas, 56169 G47.33 Services Of [facility] JUSTINO JAVED, [facility] R09.81 Office Visit 07/24/2015 1:30p [facility] Of Gem Hernández, 19779 M66.242 CLatoya Schrader Office Visit 04/19/2015 9:30a [facility] Kelly Barajas, 88909 G47.33 [facility] JUSTINO JAVED, [facility] Office Visit 06/21/2014 10:10a [facility] Rene Felix, 24861 578.9 Assoc, Hospitalists MRuiz 327.23 272.4 278.00 Office Visit 06/20/2014 10:09a [facility] Assoc, Rene Felix 42958 578.9 Hospitalists [place] 327.23 278.00 272.4 Office Visit 06/18/2014 10:08a [facility], Rachel Fried, N.P. 00910 578.9 Hospitalists 327.23 278.00 Office Visit 03/23/2014 11:45a [facility] [address] 327.23 Services Of [facility] Plan of Care Future Appointment(s):06/14/2018 9:00 am - Berny Vargas M.D.,FACP at [facility]
[2018-01-14 20:35] VITALS: BP 124/71
--- NOTE | 2018-01-14 20:46 | UC ---
Respiratory Complaint HPI - HPI Summary HPI Summary: 77 yo male presents accompanied by his for productive cough, wheezing, and sinus pain/pressure/congestion. His said that for the last few weeks he has had a dry cough, but this week has noticed he seems to have a productive cough. Started wheezing and feeling more SOB over the last 2-3 days. Lungs hurt when he coughs. He wears a CPAP at bedtime, but was unable to last night due to sinus congestion. Denies fever, chills, sore throat, chest pain, abdominal pain , n/v. - History of Current Complaint Chief Complaint: UCRespiratory Stated Complaint: SORE THROAT, AND CHEST CONGESTION Time Seen by Provider: 01/14/18 20:45 Hx Obtained From: Patient Severity Initially: Mild Severity Currently: Mild Pain Intensity: 3 Pain Scale Used: 0-10 Numeric Character: Cough: Productive - Allergies/Home Medications Allergies/Adverse Reactions: Allergies Allergy/AdvReac Type Severity Reaction Status Date / Time No Known Allergies Allergy Verified 01/14/18 20:35 PMH/Surg Hx/FS Hx/Imm Hx Endocrine History: Dyslipidemia - Surgical History Surgical History: Yes Surgery Procedure, Year, and Place: TONSILLECTOMY A CHILD. 2003 ORIF RIGHT ANKLE, [facility] [place] 2005 LEFT INGUINAL HERNIA REPAIR, [facility] [place]. October 2011 EXPLORATORY LAPAROTOMY WITH PERFORATED BOWEL REPAIR, [facility] [place]. Back surgery for DDD 09/22. HERNIA REPAIR WITH MESH, [facility] [place]. 1974 CERVICAL DISCECTOMY, [facility]. 2008 LEFT CATARACT EXTRACTION WITH IOL IMPLANT, [facility] [place] 08/2014 right eye cataract extraction with IOL, [facility] [place] - Family History Known Family History: Positive: Hypertension Negative: Cardiac Disease, Diabetes - Social History Occupation: Retired Lives: With Family Alcohol Use: Weekly Substance Use Type: None Smoking Status (MU): Former Smoker Amount Used/How Often: smoked from 13 years to 24 years 2-4 cigarettes a day Length of Time of Smoking/Using Tobacco: 7 YRS Have You Smoked in the Last Year: No When Did the Patient Quit Smoking/Using Tobacco: 1964 - Immunization History Most Recent Influenza Vaccination: 2013 Most Recent Tetanus Shot: within last 10 years Most Recent Pneumonia Vaccination: 2012 Review of Systems Constitutional: Negative Skin: Negative Eyes: Negative ENT: Nasal Discharge, Sinus Congestion, Sinus Pain/Tenderness Respiratory: Shortness Of Breath, Cough Cardiovascular: Negative Gastrointestinal: Negative Neurological: Negative Psychological: Negative All Other Systems Reviewed And Are Negative: Yes Physical Exam - Summary Physical Exam Summary: GENERAL: NAD. WDWN. No pain distress. SKIN: No rashes, sores, lesions, or open wounds. HEENT: Head: AT/NC Eyes: Conjunctiva clear without inflammation or discharge. Ears: Hearing grossly normal. TMs intact, no bulging, erythema, or edema. Nose: Nasal mucosa mildly swollen and erythematous with yellow/ clear discharge. TTP maxillary and frontal sinus. Throat: Posterior oropharynx without exudates, erythema, or tonsillar enlargement. Uvula midline. NECK: Supple. Nontender. No lymphadenopathy. CHEST: Moderate wheezing throughout. Crackles at lung bases b/l. Mild increased work of breathing. CV: RRR. Without m/r/g. Pulses intact. Brisk cap refill. NEURO: Alert. CN II-XII grossly intact. PSYCH: Age appropriate behavior. Triage Information Reviewed: Yes Vital Signs: Initial Vital Signs Temp 100.4 F 01/14/18 20:26 Pulse 81 01/14/18 20:26 Resp 18 01/14/18 20:26 BP 124/71 01/14/18 20:26 Pulse Ox 94 01/14/18 20:26 Vital Signs Reviewed: Yes Diagnostic Evaluation - Laboratory O2 Sat by Pulse Oximetry: 94 Respiratory Course/Dx - Course Course Of Treatment: CXR: IMPRESSION: LOW LUNG VOLUMES, SMALL BIBASILAR INFILTRATES. Duoneb: significant improvement s/p with decreased work of breathing and less wheezing throughout. He was given Levaquin 750mg in the clinical course. Rx for levaquin and albuterol inhaler. Advised to f/u with his PCP in 1 week for recheck. - Differential Dx/Diagnosis Provider Diagnoses: BIBASILAR pneumonia Discharge - Sign-Out/Discharge Documenting (check all that apply): Patient Departure - Discharge Plan Condition: Stable Disposition: HOME Prescriptions: Albuterol HFA INHALER* [Ventolin HFA Inhaler*] 2 puff INH Q6H PRN #1 mdi PRN Reason: Sob/Wheezing Levofloxacin TAB* [Levaquin TAB*] 750 mg PO DAILY #5 tab Patient Education Materials: Community Acquired Pneumonia (DC) Referrals: Berny Vargas MD [Primary Care Provider] - Additional Instructions: If you develop a fever, shortness of breath, chest pain, new or worsening symptoms - please call your PCP or go to the ED. 1) Please schedule a follow up with your PCP for 1 week - Billing Disposition and Condition Condition: STABLE Disposition: Home
[2018-01-14] MEDS ORDERED: Albuterol/Ipratropium NEB.SOL* Albuterol 2.5 MG/Ipratropium 0.5 MG 3 ML INH ONE (21:11)
[2018-01-14] MEDS ORDERED: Levofloxacin TAB* 250 MG PO ONE (21:14)
[2018-01-14] MEDS ORDERED: Levofloxacin TAB* 500 MG PO ONE (21:14)
--- NOTE | 2018-01-14 21:14 | RAD ---
INDICATION: Cough. COMPARISON: Comparison is made with prior study from September 03, 2017. TECHNIQUE: Dual-energy PA and lateral views of the chest were obtained. FINDINGS: The heart is within normal limits in size. Mediastinal and hilar contours appear within normal limits. The lungs are slightly underinflated. There are small infiltrates at both lung bases which appears similar to the prior exam. No pleural effusion is seen. IMPRESSION: LOW LUNG VOLUMES, SMALL BIBASILAR INFILTRATES.
== END 2018-01-14 21:58 | disposition home or self-care (01) ==
LOC: UCEAST 19:34
DX: J18.9 Pneumonia, unspecified organism (principal); Z87.891 Personal history of nicotine dependence
CPT/HCPCS: 71046; 99212; A9270-GY; G0463

== ENCOUNTER 2023-06-21 12:59 | Inpatient (IN) ==
[2023-06-21] MEDS ORDERED: Albuterol/Ipratropium NEB.SOL (2.5/0.5 MG) 3 ML NEB.SOLN INH ONE ×2 (13:21→14:14)
[2023-06-21] MEDS ORDERED: methylPREDNISolone SOD SUCC 125 mg 2 ML VIAL IV ONE (13:21)
[2023-06-21 14:07] LABS: ABS Lymphocytes 0.4 10^3/uL (1.0-4.8); ABS Monocytes 0.6 10^3/uL (0.0-1.1); ABS Neutrophils 8.2 10^3/uL (1.5-7.6); Eosinophil % 0.2 %; Hematocrit 42.8 % (38-53); Hemoglobin 14.6 g/dL (13.2-16.3); Mean Corpuscular Hemoglobin 32.9 pg (27-33); Mean Corpuscular Hgb Conc 34.1 g/dL (31-36); Mean Corpuscular Volume 96.6 fL (80-97); Mean Platelet Volume 8.4 fL (7.5-11.2); Platelet Count 215 10^3/uL (150-450); Red Blood Count 4.44 10^6/uL (4.06-5.63); Red Cell Distribution Width 14.9 % (12-17); White Blood Count 9.2 10^3/uL (3.6-10.2)
[2023-06-21 14:24] LABS: C Reactive Protein 20.27 mg/L (<8.01); Calcium 8.9 mg/dL (8.6-10.3); Creatinine, Serum 1.45 mg/dL (0.67-1.17); Potassium 4.2 mmol/L (3.5-5.0); eGFR CKD-EPI 47.8 (>60)
[2023-06-21] MEDS ORDERED: Albuterol 2.5mg/3 ml (0.083%) NEB.SOLN INH PRN (16:55)
[2023-06-21] MEDS ORDERED: Albuterol HFA INHALER 8 gm MDI INH PRN (16:55)
[2023-06-21] MEDS ORDERED: Magnesium Sulfate 2 gm BAG 2 GM/50 ML BAG IVPB ONE (17:14)
[2023-06-21] MEDS ORDERED: Albuterol/Ipratropium NEB.SOL (2.5/0.5 MG) 3 ML NEB.SOLN INH PRN (17:18)
[2023-06-21 18:19] LABS: PCO2 Arterial 35 mmHg (35-45); PO2 Arterial 79 mmHg (80-100)
[2023-06-21] MEDS: Enoxaparin 40 MG/0.4 ML SYR SUBCUT SCH (18:41)
[2023-06-21] MEDS: Albuterol/Ipratropium NEB.SOL (2.5/0.5 MG) 3 ML NEB.SOLN INH SCH (19:44)
[2023-06-21] MEDS: methylPREDNISolone SOD SUCC 40 mg/ml 1 ml VIAL IV SCH (21:57)
[2023-06-22] MEDS: Albuterol/Ipratropium NEB.SOL (2.5/0.5 MG) 3 ML NEB.SOLN INH SCH ×6 (01:30→19:18)
[2023-06-22] MEDS: methylPREDNISolone SOD SUCC 40 mg/ml 1 ml VIAL IV SCH ×3 (05:53→20:28)
[2023-06-22 05:55] LABS: ABS Lymphocytes 0.4 10^3/uL (1.0-4.8); ABS Monocytes 0.4 10^3/uL (0.0-1.1); ABS Neutrophils 9.4 10^3/uL (1.5-7.6); ABS Nucleated RBC 0.01 10^3/ul; Hematocrit 43.1 % (38-53); Hemoglobin 14.9 g/dL (13.2-16.3); Mean Corpuscular Hemoglobin 32.9 pg (27-33); Mean Corpuscular Hgb Conc 34.5 g/dL (31-36); Mean Corpuscular Volume 95.2 fL (80-97); Nucleated Red Blood Cells % 0.1 %/100WBC (0.0-0.8); Platelet Count 220 10^3/uL (150-450); Red Blood Count 4.52 10^6/uL (4.06-5.63); Red Cell Distribution Width 14.4 % (12-17); White Blood Count 10.3 10^3/uL (3.6-10.2)
[2023-06-22 06:10] LABS: Calcium 8.9 mg/dL (8.6-10.3); Creatinine, Serum 1.48 mg/dL (0.67-1.17); Potassium 4.1 mmol/L (3.5-5.0); eGFR CKD-EPI 46.7 (>60)
[2023-06-22] MEDS: Enoxaparin 40 MG/0.4 ML SYR SUBCUT SCH (17:26)
[2023-06-23] MEDS: Albuterol/Ipratropium NEB.SOL (2.5/0.5 MG) 3 ML NEB.SOLN INH SCH ×4 (02:00→19:22)
[2023-06-23] MEDS: methylPREDNISolone SOD SUCC 40 mg/ml 1 ml VIAL IV SCH ×2 (05:20→14:19)
[2023-06-23 06:20] LABS: Hematocrit 40.1 % (38-53); Hemoglobin 13.4 g/dL (13.2-16.3); Mean Corpuscular Hemoglobin 32.4 pg (27-33); Mean Corpuscular Hgb Conc 33.4 g/dL (31-36); Mean Platelet Volume 7.9 fL (7.5-11.2); Platelet Count 215 10^3/uL (150-450); Red Blood Count 4.13 10^6/uL (4.06-5.63); Red Cell Distribution Width 14.6 % (12-17); White Blood Count 17.5 10^3/uL (3.6-10.2)
[2023-06-23 06:38] LABS: Calcium 8.6 mg/dL (8.6-10.3); Creatinine, Serum 1.47 mg/dL (0.67-1.17); Magnesium 2.3 mg/dL (1.9-2.7); Phosphorus 4.5 mg/dL (2.5-5.0); Potassium 4.5 mmol/L (3.5-5.0)
[2023-06-23 07:00] LABS: ABS Lymphocytes 0.5 10^3/uL (1.0-4.8); ABS Neutrophils 15.9 10^3/uL (1.5-7.6); Lymphocyte % 2.9 %
[2023-06-23] MEDS: Enoxaparin 40 MG/0.4 ML SYR SUBCUT SCH (18:01)
[2023-06-24] MEDS: Albuterol/Ipratropium NEB.SOL (2.5/0.5 MG) 3 ML NEB.SOLN INH SCH ×3 (01:02→14:00)
[2023-06-24 06:16] LABS: Hematocrit 39.7 % (38-53); Hemoglobin 13.4 g/dL (13.2-16.3); Mean Corpuscular Hemoglobin 32.5 pg (27-33); Mean Corpuscular Hgb Conc 33.6 g/dL (31-36); Mean Corpuscular Volume 96.6 fL (80-97); Mean Platelet Volume 7.9 fL (7.5-11.2); Platelet Count 232 10^3/uL (150-450); Red Blood Count 4.11 10^6/uL (4.06-5.63); Red Cell Distribution Width 14.4 % (12-17); White Blood Count 15.7 10^3/uL (3.6-10.2)
[2023-06-24 06:31] LABS: Calcium 8.4 mg/dL (8.6-10.3); Creatinine, Serum 1.36 mg/dL (0.67-1.17); Potassium 4.7 mmol/L (3.5-5.0); eGFR CKD-EPI 51.6 (>60)
[2023-06-24] MEDS: Enoxaparin 40 MG/0.4 ML SYR SUBCUT SCH (16:27)
[2023-06-25 06:40] LABS: Calcium 8.2 mg/dL (8.6-10.3); Creatinine, Serum 1.31 mg/dL (0.67-1.17); Potassium 4.5 mmol/L (3.5-5.0)
[2023-06-25 13:59] VITALS: BP 124/78
== END 2023-06-25 14:49 | disposition home or self-care (01) | DRG 193 ==
LOC: ED 12:59 → SUATTDRO 16:46 → EDHOLD 16:46 → MEDTELE 21:52
PROVIDERS: ADMIT Hospitalist; ATTEND Internal Medicine

== ENCOUNTER 2023-10-26 12:06 | Observation (INO) ==
[2023-10-26] MEDS: Albuterol/Ipratropium NEB.SOL (2.5/0.5 MG) 3 ML NEB.SOLN INH ONE (14:49)
[2023-10-26 15:44] LABS: ABS Eosinophils 0.3 10^3/uL (0.0-0.5); ABS Lymphocytes 1.6 10^3/uL (1.0-4.8); ABS Monocytes 1.2 10^3/uL (0.0-1.1); ABS Neutrophils 5.5 10^3/uL (1.5-7.6); ABS Nucleated RBC 0.02 10^3/ul; Eosinophil % 3.4 %; Hematocrit 46.5 % (38-53); Hemoglobin 15.4 g/dL (13.2-16.3); Lymphocyte % 18.2 %; Mean Corpuscular Hemoglobin 32.2 pg (27-33); Mean Corpuscular Volume 97.6 fL (80-97); Mean Platelet Volume 8.1 fL (7.5-11.2); Nucleated Red Blood Cells % 0.3 %/100WBC (0.0-0.8); Platelet Count 191 10^3/uL (150-450); Red Blood Count 4.77 10^6/uL (4.06-5.63); Red Cell Distribution Width 14.5 % (12-17); White Blood Count 8.6 10^3/uL (3.6-10.2)
[2023-10-26 16:43] LABS: Albumin 4.5 g/dL (3.2-5.2); Albumin/Globulin Ratio 1.9 (1-3); C Reactive Protein 4.32 mg/L (<8.01); Calcium 9.2 mg/dL (8.6-10.3); Creatinine, Serum 1.38 mg/dL (0.67-1.17); Globulin 2.4 g/dL (2-4); Potassium 4.4 mmol/L (3.5-5.0); Total Bilirubin 1.3 mg/dL (0.2-1.0); Total Protein 6.9 g/dL (6.4-8.9); eGFR CKD-EPI 50.4 (>60)
[2023-10-26] MEDS ORDERED: Albuterol HFA INHALER 8 gm MDI INH PRN (20:21)
[2023-10-26] MEDS: methylPREDNISolone SOD SUCC 40 mg/ml 1 ml VIAL IV SCH (21:41)
[2023-10-26] MEDS: Enoxaparin 40 MG/0.4 ML SYR SUBCUT SCH (21:41)
[2023-10-27 07:14] LABS: Calcium 8.8 mg/dL (8.6-10.3); Creatinine, Serum 1.32 mg/dL (0.67-1.17); Potassium 4.8 mmol/L (3.5-5.0); eGFR CKD-EPI 53.2 (>60)
[2023-10-27] MEDS: Albuterol/Ipratropium NEB.SOL (2.5/0.5 MG) 3 ML NEB.SOLN INH SCH ×2 (07:15→19:48)
[2023-10-27 07:34] LABS: Hematocrit 43.8 % (38-53); Hemoglobin 14.9 g/dL (13.2-16.3); Mean Corpuscular Hemoglobin 32.6 pg (27-33); Mean Corpuscular Volume 95.8 fL (80-97); Red Blood Count 4.58 10^6/uL (4.06-5.63); Red Cell Distribution Width 14.5 % (12-17); White Blood Count 4.6 10^3/uL (3.6-10.2)
[2023-10-27 08:20] LABS: ABS Lymphocytes 0.6 10^3/uL (1.0-4.8); ABS Monocytes 0.1 10^3/uL (0.0-1.1); ABS Neutrophils 3.9 10^3/uL (1.5-7.6); ABS Nucleated RBC 0.01 10^3/ul; Eosinophil % 0.2 %; Lymphocyte % 12.7 %; Mean Platelet Volume 8.3 fL (7.5-11.2); Nucleated Red Blood Cells % 0.2 %/100WBC (0.0-0.8); Platelet Count 181 10^3/uL (150-450)
[2023-10-27] MEDS: Benzocaine/Menthol LOZ PO PRN (21:59)
[2023-10-28 14:00] VITALS: BP 135/72
[2023-10-28 20:10] LABS: Adenovirus Undetected (Undetected); Coronavirus 229E Undetected (Undetected); Coronavirus HKU1 Undetected (Undetected); Coronavirus NL63 Undetected (Undetected); Coronavirus OC43 Undetected (Undetected); Human Metapneumovirus Undetected (Undetected); Human Rhinovirus/Enterovirus Undetected (Undetected); Influenza A Undetected (Undetected); Specimen Source NASOPHARYNGEAL SWAB
[2023-10-28 20:11] LABS: Bordetella parapertussis Undetected (Undetected); Bordetella pertussis Undetected (Undetected); Chlamydophila pneumoniae Undetected (Undetected); Influenza B Undetected (Undetected); Mycoplasmoides pneumoniae Undetected (Undetected); Parainfluenza Virus 1 Undetected (Undetected); Parainfluenza Virus 2 Undetected (Undetected); Parainfluenza Virus 3 Detected (Undetected); Parainfluenza Virus 4 Undetected (Undetected); Respiratory Syncytial Virus Undetected (Undetected)
== END 2023-10-28 15:02 | disposition home or self-care (01) ==
LOC: ED 12:06 → EDHOLD 12:06 → MED 21:40
PROVIDERS: ADMIT Student in an Organized Health Care Education/Training Program; ATTEND Internal Medicine